=== PATIENT | female | born 1990 | race Caucasian/White ===

== ENCOUNTER → 2016-12-30 | Outpatient (CLI) | payer BC ==
[~2016-12-30] MED LIST: FERROUS SULFAT325 M1 PO; PRENATAL PLUS1 TA1 PO
--- NOTE | 2016-12-30 17:18 | RADIOLOGY REPORT PS360 ---
US TRANSVAGINAL PREG HISTORY: OB US FOR DATES ORDERING PHYSICIAN: Keo Catalan MD PATIENT AGE: 26 years COMPARISON: None FINDINGS: An intrauterine gestational sac is present with a pole with a crown-rump length of 1.27cm correlating to gestational age of 7 weeks 4 days. heart tones are present with an FHR of 157 bpm's. Yolk sac is noted. The amnion and chorion have not yet fused. Adnexa: Left ovary is unremarkable. Right ovary not identified.. IMPRESSION: Live intrauterine gestation at 7 weeks 4 days
== END ==
LOC: RAD 14:15
DX: O26.841 Uterine size-date discrepancy, first trimester (principal)

== ENCOUNTER → 2017-07-18 | Outpatient (CLI) | payer BC | LOC: LAB 17:32 | DX: Z34.80 Encounter for supervision of other normal pregnancy, unspecified trimester (principal) ==

== ENCOUNTER 2017-08-11 01:40 | Inpatient (IN) | payer BC ==
[~2017-08-11] VITALS: Ht 182.9 cm; Wt 97.5 kg
[2017-08-11 05:14] VITALS: BP 122/78
[2017-08-11 05:22] LABS: HEMOGLOBIN 14.2 g/dL (12.2-16.2); LYMPH # 1.5 K/mm3 (0.7-4.5); LYMPH % 19.8 % (10-50.0)
[2017-08-11 06:27] LABS: ABO BLOOD TYPE O; RH BLOOD TYPE POSITIVE
[2017-08-11 07:56] VITALS: BP 134/80
--- NOTE | 2017-08-11 10:18 | LABOR NOTE ---
Laboring Subjective Subjective Date 08/11/17 Time 1016 Subjective: Pt is having regular contractions Laboring Objective Objective NST: Reactive Contractions: q 2-3 minutes Cervical dilation: 4 Effacement: 75% Station: -2 Membranes are: Artificially ruptured (with clear fluid) Fetus monitoring? Yes Type: Internal Comment: clip and iupc inserted Laboring Assessment Assessment Progressing? Yes Cephalopelvic disproportion? No Problem List: 1. Normal delivery Laboring Plan Plan Anethesia for epidural? Yes Continue to labor down? Yes Plan for ? No Continue to monitor? Yes Start pushing? No at 1017
--- NOTE | 2017-08-11 13:09 | LABOR NOTE ---
Laboring Subjective Subjective Date 08/11/17 Time 1308 Subjective: Pt is having regular contractions Laboring Objective Objective NST: Reactive Contractions: q 2-3 minutes Cervical dilation: 4 Effacement: 90% Station: -1 Membranes are: Artificially ruptured (with clear fluid) Fetus monitoring? Yes Type: Internal Laboring Assessment Assessment Progressing? Yes Cephalopelvic disproportion? No Problem List: 1. Normal delivery Laboring Plan Plan Anethesia for epidural? Yes Continue to labor down? Yes Plan for ? No Continue to monitor? Yes Start pushing? No at 1302
--- NOTE | 2017-08-11 15:37 | LABOR NOTE ---
Laboring Subjective Subjective Date 08/11/17 Time 1535 Subjective: Pt is having regular contractions Laboring Objective Objective NST: Reactive Contractions: q 2-3 minutes Cervical dilation: 8-9 Effacement: 100% Station: 0 Membranes are: Artificially ruptured Fetus monitoring? Yes Type: Internal Laboring Assessment Assessment Progressing? Yes Cephalopelvic disproportion? No Problem List: 1. Normal delivery Laboring Plan Plan Anethesia for epidural? Yes Continue to labor down? Yes Plan for ? No Continue to monitor? Yes Start pushing? No at 1536
--- NOTE | 2017-08-11 18:23 | LABOR NOTE ---
Laboring Subjective Subjective Date 08/11/17 Time 1821 Subjective: Pt is having regular contractions Laboring Objective Objective NST: Reactive Contractions: q 2-3 minutes Cervical dilation: 9 (fully) Effacement: 100% Station: +1 Membranes are: Artificially ruptured Fetus monitoring? Yes Type: Internal Laboring Assessment Assessment Progressing? Yes Cephalopelvic disproportion? No Problem List: 1. Normal delivery Laboring Plan Plan Anethesia for epidural? Yes Continue to labor down? Yes Plan for ? No Continue to monitor? Yes Start pushing? Yes Continue pushing? Yes at 1822
--- NOTE | 2017-08-11 19:00 | Delivery Note ---
Delivery note Delivery date: 08/11/17 Delivery time: 1843 Anesthesia: Epidural, Chidi Annimarvel Was labor medically induced? No Gestational age in weeks: 39 weeks Days: 3 days Delivery prior to 39 weeks? No Justification for delivery: Active labor Sex: male score at one minute: 8 at 5 minutes: 9 Type of suction: bulb AF: Clear fluid LAC or MLE: LAC (small vaginal) Delivery procedure: Normal Delivery Delivery of placenta: spontaneous Clinical note She is a 27-year-old 2 para 1 who is 39 and 3 weeks gestational age. She came in having a few contractions. As result of that we elected to augment her labor. She had her membranes ruptured and under labor epidural progressed to full dilation. She delivered spontaneously a liveborn male child at 6:44 PM in the afternoon of August 11, 2017. The baby was a liveborn male child with Apgars of 8 at 1 minute and 9 at 5 minutes. On delivery the head it was noted that there was a loose nuchal cord. This was easily reduced. This was followed by the anterior shoulder and the rest of the infant's body atraumatically. The baby was vigorous and cried spontaneously. We allowed the cord continue to pulsate until the 1 minute postdelivery Garcia. The cord was doubly clamped and cut. The infant was then placed on the mother's abdomen for further care. The nurses assigned Apgars of 8 at 1 minute and 9 at 5 minutes. We then obtained cord blood as well as cord pH. PH was 7.16. Using gentle traction on the cord and countertraction on the fundus I was able to easily deliver the placenta intact. It had a normal three-vessel cord. There was a small posterior vaginal laceration that was repaired with a single figure- of-eight 3-0 Vicryl Rapide suture. She has O positive blood, she is rubella immune and was group B streptococcus negative. She plans to breast-feed. Her journeyman press operator is Dr. Baez. Estimated blood loss was approximately 400 mL. at 1900
[2017-08-11 19:30] LABS: URINE BILIRUBIN - DIPSTICK NEGATIVE (NEG); URINE BLOOD NEGATIVE (NEG)
[2017-08-12 00:06] VITALS: BP 128/72
[2017-08-12 07:59] LABS: HEMOGLOBIN 9.7 g/dL (12.2-16.2)
[2017-08-12 08:45] VITALS: BP 124/67
--- NOTE | 2017-08-12 11:20 | ACUTE CARE PROGRESS NOTE (QUA) ---
Progress Notes Subjective Date 08/12/17 Time 1119 Note She continues to do very well. She is eating and drinking and ambulating. She is breast feeding. Her lochia is normal. Patient/family reports: feeling better, no complaints Objective Findings Last VS-Temp:98.0 B/P:124/67 Pulse:86 Resp:16 SaO2: Last weight lbs:215 oz:0 K.524 Method:Stated Laboratory Tests 08/12/17 0700: Hgb 9.7 L, Hct 29.3 L 08/11/17 1855: Cord Blood pH 7.16 L Exam General appearance: normal appearance, alert, awake, no acute distress Reviewed: vital signs, lab results Assessment/Plan Problem List 1. Normal delivery Patient condition Improving, Stable Plan: continue current care This inpt stay is expected to cross 2 MNs from start of care Yes Comments: She is doing very well and we'll plan to send her home tomorrow. at 1120
[2017-08-12 20:00] VITALS: BP 136/74
[2017-08-13 09:00] VITALS: BP 126/71
--- NOTE | 2017-08-13 09:58 | ACUTE CARE PROGRESS NOTE (QUA) ---
Progress Notes Subjective Date 08/13/17 Time 0957 Note She is doing very well this morning. She is eating and drinking and ambulating. She is breast feeding. Her lochia is normal. Patient/family reports: feeling better, no complaints Objective Findings Last VS-Temp:98.0 B/P:136/74 Pulse:71 Resp:18 SaO2: Last weight lbs:215 oz:0 K.524 Method:Stated Exam General appearance: normal appearance, alert, awake, no acute distress Reviewed: vital signs, lab results Assessment/Plan Problem List 1. Normal delivery Patient condition Improving, Stable Plan: continue current care, initiate discharge plan This inpt stay is expected to cross 2 MNs from start of care Yes Comments: She is doing very well this morning. We'll plan to send her home today. at 0958
--- NOTE | 2017-08-13 10:00 | Discharge Summary ---
Discharge Summary Admission date: 08/11/17 Discharge date: 08/13/17 Discharge diagnoses: Term , spontaneous vaginal delivery Clinical note: She is a 27-year-old 3 now para 2 aborta 1 who was 39 3 weeks gestational age. She was feeling contractions and as result of that came in. Course in hospital: She was having contractions when she arrived and as result of that we elected to augment her labor. She had her membranes ruptured and under labor epidural progressed to full dilation. She delivered spontaneously a liveborn male child at 6:44 PM in the afternoon of August 11, 2017. The baby weighed 8 lbs. 4 oz. and was 20 inches long. He had Apgars of 8 at 1 minute and 9 at 5 minutes. She has done well and has remained afebrile throughout her hospitalization. She is eating and drinking and ambulating. She is breast- feeding. She has O positive blood, she is rubella immune and she was group B streptococcus negative. Laboratory Tests 08/11/17 0500: PT 9.9, INR 0.92, APTT 26.9, Fibrinogen 478.9, D-Dimer 823, WBC 7.8, RBC 5.47, MCV 78.3, RDW 14.4, Plt Count 264, MPV 7.1, Gran % 71.8, Gran # 5.6, Lymphocytes % 19.8, Monocytes % 5.0, Eosinophils % 3.2, Basophils % 0.3, Lymphocytes # 1.5, Monocytes # 0.4, Eosinophils # 0.3, Basophils # 0.0, PUBS MCHC 33.3, Antibody Screen POSITIVE, Miscellaneous Test POSITIVE 08/11/17 0500: MCH 26.0 08/11/17 1045: Urine Color YELLOW, Urine Appearance CLEAR, Urine pH 6.5, Ur Specific [place] 1.020, Urine Protein TRACE, Urine Ketones NEGATIVE, Urine Blood NEGATIVE, Urine Nitrate NEGATIVE, Urine Bilirubin NEGATIVE, Urine Urobilinogen 1.0, Ur Leukocyte Esterase NEGATIVE, Urine RBC NONE, Urine WBC 3-5, Ur Squamous Epith Cells 3-5, Urine Bacteria TRACE, Hyaline Casts OCC, Urine Mucus 1+, Urine Glucose NEGATIVE 08/11/17 1855: Cord Blood pH 7.16 08/12/17 0700: Hgb 9.7, Hct 29.3 Plans for ongoing care: She is discharged home to follow-up with me in approximately 2 weeks' time. Discharge medications She'll continue with her vitamins and iron. She'll take over-the- counter analgesics as needed. DC/follow-up instructions She was given the usual instructions with respect to limiting her activity, driving and sexual activity. Condition at discharge Stable and improved. at 1000
== END 2017-08-13 11:00 | disposition home or self-care (01) | DRG 775 ==
LOC: OB 01:40
PROVIDERS: Nurse Practitioner Obstetrics & Gynecology
PROC: 0HQ9XZZ Repair Perineum Skin, External Approach (ICD-10-PCS; principal; 2017-08-11)
PROC: 10E0XZZ Delivery of Products of Conception, External Approach (ICD-10-PCS; principal; 2017-08-11)
DX: O70.0 First degree perineal laceration during delivery (principal); O69.81X0 Labor and delivery complicated by cord around neck, without compression, not applicable or unspecified; Z37.0 Single live birth; Z3A.39 39 weeks gestation of pregnancy
CPT/HCPCS: C1758